=== PATIENT | female | born 1985 | race Hispanic/Latino ===

== ENCOUNTER 2018-03-31 12:58 | Inpatient (IN) | payer MEDICAID, OTHER, SELFPAY ==
--- NOTE | 2018-03-31 14:57 | PDOC.FPROB ---
FMR OB H&P: HPI - History of Present Illness Chief Complaint: Decreased FM Indentification: 33 yo @ 39.2 wk by LMP c/w 32.3 wk nayeli presents for decreased FM History of Present Illness: 33 yo @ 39.2 wk (CRISTHIAN 04/05/18) c/w 32.3 wk nayeli presents from clinic for decreased movement for past 2 days. She states that she has felt baby move twice this morning, and baby moved during her clinic visit when the doctor pressed hard on her abdomen. Patient has also had intermittent diarrhea for past week, and nausea and vomiting her whole . No sick contacts with diarrhea. Her has been complicated by anemia, for which she takes Fe pills. Denies LOF/VB/contractions. She does have pain with urination and sharp bilateral lower back pain that radiates to the groin in certain positions. She also has period-like cramping. Her SVE was 1/thick/-3 at her clinic appointment. FMR OB H&P: Current - Care : 6 Para: [id number] Gestational age: 39.2 Due date: 02/03/18 Dating Criteria: 32.3 wk sono c/w LMP Course/Complications: Anemia, Nausea/vomiting - OB Labs HIV: negative RPR: negative 1 hour gtt: negative for DM GBS: negative - Anatomy Survey Anatomy survey: Growth sono in January, late transfer of care 32.3 wk sono with TAMP c/w LMP 7.2 wk sono done at previous clinic, no records FMR OB H&P: History - Past Medical History PMH: Kidney stones - OB History OB History: 5 miscarriages - PUBLIC RELATIONS SUPERVISOR History PUBLIC RELATIONS SUPERVISOR History: none - Surgical History Sx History: Stent for kidney stones - Social History Social History: Denies alcohol, tobacco, and drug use - Family History Family History: Denies fam hx of HTN, DM, heart disease, or familial disease such as down syndrome FMR OB H&P: Medications - Current Allergies/Adverse Reactions: Allergies Allergy/AdvReac Type Severity Reaction Status Date / Time No Known Allergies Allergy Verified 03/31/18 14:40 FMR OB H&P: ROS - Review of Systems General: denies: fever/chills ENT: denies: nasal congestion, rhinorrhea, sore throat Cardiovascular: denies: chest pain, palpitation Respiratory: denies: cough, congestion, shortness of breath Gastrointestinal: reports: cramping, nausea, vomiting, diarrhea. denies: abdominal pain, constipation, bright red blood Genitourinary (Female): reports: dysuria. denies: incontinence, hematuria, vaginal discharge, vaginal bleeding Musculoskeletal: reports: pain (in bilateral lower back) Neurologic: reports: headache Integumentary: denies: itching, rash Breast: denies: skin changes Psychological: denies: depression, anxiety FMR OB H&P: Vital Signs - Maternal Vital signs: Pulse 113, BP 116/78 - Heart Tones Baseline: 150 Variability: moderate Acceleration: present Deceleration: variable [place] contractions every: none FMR OB H&P: Physical Exam - Physical Exam General: NAD, awake, alert and oriented HEENT: normocephalic and atraumatic, PERRLA, EOMI, MMM, conjunctiva clear, grossly normal hearing Neck: supple, no LAD Heart: RRR, normal S1/S2, no murmurs/rubs/gallops, pulses present, no edema General: CTAB, no respiratory distress, good air movement, no wheezing Abdomen: soft, gravid, bowel sound present Musculoskeletal: pulses present Skin: no rash Psychiatric: intact recent and remote memory, good judgement and insight, normal mood and affect FMR OB H&P: A/P - Problem List (1) related condition in third trimester Current Visit: No Status: Acute Code(s): O26.93 - RELATED CONDITIONS, UNSPECIFIED, THIRD TRIMESTER Discussion: Date/Time: 03/31/18 1455 33 yo @ 39.2 wk by 32.3 wk sono c/w LMP (CRISTHIAN 04/05/18) presents from clinic for decreased movement. sIUP with decreased movement -BPP pending -FHTs baseline 150s, mod variability, accels present, variable decel present, no cxns Dehydration 2/2 gastroenteritis -CMP -LR 1000 ml bolus, then LR @ 125 -Encourage PO fluids -zofran for nausea Hx of Anemia of -Tachycardic -CBC for anemia -Continue Fe Concern for UTI -Pain with urination, pt reports foul smelling urine -UA w/ micro pending Admit to L&D Obs Diet: regular DVT ppx: none Attending Addendum - Attending Addendum Date/Time: 03/31/18 1650 I personally evaluated the patient and discussed the management with Dr. Kang I agree with the History, Examination, Assessment and Plan documented above with any addition or exceptions noted below. 33 yo @ 39.2 wk (CRISTHIAN 04/05/18) by LMP c/w 32.2 wk US presenting for decreased movement. Recent episode of diarrhea and has had persistent nausea/vomiting during the . 1. Maternal tachycardia -IV fluids administered 2. Decreased FM -BPP 12/06 3. Abnormal heart tracing -Fetus initially not tachycardic but became persistently tachycardic after 2L bolus -Several variable decels and spontaneous, subtle decels x 1 min. -Given nonreassuring tracing in at term will proceed with induction of labor. 4. Recurrent AB -had negative APS labs 5. Late transfer of care -Labs incomplete. Will send at this time. 6. IOL -Start IOL with cytotec once strip if strip is reassuring. -Consider cook catheter if tracing is not reassuring -GBS negative
[2018-03-31] MEDS ORDERED: Ondansetron PF 4 MG/2 ML Vial IVP PRN (15:02)
[2018-03-31] MEDS ORDERED: Docusate 100 MG CAP PO PRN (15:02)
[2018-03-31] MEDS ORDERED: Promethazine HCl 25 MG/ML VIAL IM PRN (15:02)
[2018-03-31] MEDS ORDERED: Lactated Ringer's 1,000 ML IV SCH (15:15)
[2018-03-31 15:33] LABS: ALT (SGPT) Less than 7 U/L (8-55); AST (SGOT) 12 U/L (5-34); Albumin 3.6 g/dL (3.5-5.0); Alkaline Phosphatase 179 U/L (40-150); Anion Gap 12 mmol/L (10-20); BUN (Urea Nitrogen) 9 mg/dL (7.0-18.7); Bilirubin, Total 0.2 mg/dL (0.2-1.2); Calc. Creatinine Clearance 0 mL/min (70-130); Calcium 9.3 mg/dL (7.8-10.44); Carbon Dioxide 21 mmol/L (22-29); Chloride 107 mmol/L (98-107); Estimated GFR-MDRD Greater than 90; Globulin 3.3 g/dL (2.4-3.5); Glucose 89 mg/dL (70-105); Potassium 3.8 mmol/L (3.5-5.1); Protein, Total 6.9 g/dL (6.0-8.3); Sodium 136 mmol/L (136-145)
--- NOTE | 2018-03-31 16:33 | PDOC.EVN ---
Event Note - Event Note Event Note: 33 yo presents for reduced FM SVE @ 1600 1/thick/high sIUP -FHTs Cat 2 for tachycardia, and variable decel -SVE @ 1600 on 03/31/18 1/thick/high -BPP 12/04, vertex -Start cytotec induction -BPP wnl -Recheck in 4 hours <Kari Kang - Last Filed: 03/31/18 16:36> - Event Note Event Note: FHT is not category 2 as pt is not in labor. FHR is 180s and pt has had numerous variable decels. Will keep and induce labor for nonreassuring status given abnormalities in FHT <India Cornell - Last Filed: 03/31/18 16:43>
[2018-03-31 16:38] LABS: #Eosinphils 0.1 thou/uL (0.0-0.7); #Lymphocytes 1.7 thou/uL (1.20-3.40); #Monocytes 0.7 thou/uL (0.11-0.59); #Neutrophils 8.2 thou/uL (1.40-6.50); %Basophils 0.5 % (0.0-1.0); %Eosinophils 0.6 % (0.0-10.0); %Monocytes 6.7 % (0.0-10.0); %Neutrophils 76.2 % (42.0-75.0); Hemoglobin 11.9 g/dL (12.0-16.0); Mean Corpuscular HGB CONC 32.3 g/dL (32.0-36.0); Mean Corpuscular Hemoglobin 25.6 pg (27.0-31.0); Mean Corpuscular Volume 79.4 fL (78.0-98.0); Mean Platelet Volume 9.5 fL (7.4-10.4); Platelet Count 358 thou/uL (130-400); RBC Distribution Width 16.7 % (11.5-14.5); Red Blood Cell (RBC) Count 4.64 mill/uL (4.20-5.40); White Blood Cell (WBC) Count 10.7 thou/uL (4.8-10.8)
[2018-03-31] MEDS ORDERED: Misoprostol 100 MCG TAB VAG SCH (16:45)
[2018-03-31 17:11] VITALS: BMI 32.3
[2018-03-31 17:17] LABS: HBSAg Index 0.19 S/CO (0-0.99); Hep B Surf Ag Non-Reactive S/CO (NonReactive)
[2018-03-31 17:39] LABS: Syphilis Antibody Nonreactive (Nonreactive); Syphilis Antibody Index 0.05 S/CO (<1.00 Non-Reactive)
--- NOTE | 2018-03-31 18:05 | PDOC.EVN ---
Event Note - Event Note Event Note: Balloon Placement Cooks balloon requested for cervical ripening as FHTs remain tachycardic and at this time we do not want to initiate medication for IOL. Balloon placed successfully and both uterine and vaginal balloons inflated with 60mL sterile water. FHTs remained baseline 160 with good variability. Mom comfortable and tolerated placement well. Recheck in 12 hours or sooner if indicated.
--- NOTE | 2018-03-31 18:56 | PDOC.EVN ---
Event Note - Event Note Event Note: Date/Time: 03/31/18 185 I personally evaluated the patient and discussed the management with Dr. Cornell. Since IV fluids have been administered, both maternal and HR has improved. HR now 150 baseline with moderate variability of about the past 30 minutes. Because of some late decelerations I am considering the tracing a Cat II, but it is improving with IV fluid therapy. A third liter of crystalloid has been ordered. Maternal HR was 100 during my exam. She had diarrhea and some vomiting, so I expected she has been dehydrated and expect with correction that she and the baby's HR will normalize. I discussed the possibility of delivery should their be concern for the baby and she expressed consent to that should the time come.
[2018-03-31] MEDS: Lactated Ringer's 1,000 ML IV SCH (19:31)
[2018-03-31] MEDS ORDERED: Bupivacaine HCl 0.5%/Epinephrine 1:200,000/PF 30 ml Vial ONE (20:00)
--- NOTE | 2018-03-31 22:00 | PDOC.EVN ---
Event Note - Event Note Event Note: Lexii notes some occasional diarrhea. Feels some pressure and mild Contractions. HR has become category I with spontaneous accels over past hour. Occasional periods of Cat II, but mostly Cat I. Will continue to follow. Continue IV fluids. Labs are normal. [facility] and [facility] records reviewed confirming dates. GBS unknown, and no indication for GBS prophylaxis.
[2018-03-31] MEDS ORDERED: Acetaminophen 500 MG TAB PO PRN (23:39)
[2018-04-01] MEDS ORDERED: Butorphanol Tartrate 1 MG/ML VIAL SLOW IVP PRN (00:41)
--- NOTE | 2018-04-01 02:22 | PDOC.EVN ---
Event Note - Event Note Event Note: 33 yo presents for reduced FM sIUP -FHTs was Cat 2 for tachycardia, and variable decel--> now Cat 1, 135/mod/+ accel/no decel -SVE @ 1600 on 03/31/18 1/thick/high, balloon placed @ 1800 -BPP 8/8, vertex -Patient denies recent diarrhea. Reports frequent urination and urine is turning assessment coordinator in color. - s/p 3L bolus. Pt appeared volume down and has improved with fluid resuscitation. Now continue IVF @ 125. - stadol and tylenol prn - Continue current management. Will allow patient to rest. Balloon will be in place for 12 hrs @ 0600. Will likely start pitocin at that time.
[2018-04-01] MEDS: Lactated Ringer's 1,000 ML IV SCH ×5 (03:15→18:22)
--- NOTE | 2018-04-01 06:41 | PDOC.EVN ---
Event Note - Event Note Event Note: 33 yo @ 39.3 wk presented for reduced FM now here for IOL. Patient is feeling well. Does have headache and some back pain with contractions. Baby is now moving well. Denies upper abdominal pain or swelling. She was able to get some sleep last night, she is now desiring an epidural before pitocin is started. General: well appearing, in bed resting Eyes: Perrla Cardiac: RRR, no murmurs Lungs: BCTA Extremities: pulses full and equal, no peripheral edema RPR negative HepBsAg negative Rubella pending UA pending sIUP -FHTs now Cat 1, 135/mod/+ accel/no decels -SVE @ 1600 on 03/31/18 1/thick/high, balloon placed @ 1800 -SVE @ 0615 on 04/01/18 4/60/-2, balloon removed -BPP 12/04, vertex - s/p 3L bolus. LR @ 125. - stadol and tylenol prn - Epidural ordered - Start augmentation of labor with pitocin <Kari Kang - Last Filed: 04/01/18 07:40> Attending Addendum - Attending Addendum Date/Time: 04/01/18 1236 I personally evaluated the patient and discussed the management with Dr. Kang I agree with the History, Examination, Assessment and Plan documented above with any addition or exceptions noted below. undergoing IOL for nonreassuring status. FHTs have been mostly cat I with periods of cat II Continue induction with pitocin Anticipate <India Cornell - Last Filed: 04/01/18 12:37>
[2018-04-01] MEDS ORDERED: NS / Oxytocin 40 units/1000ml 1,000 ML IV PRN (07:38)
[2018-04-01] MEDS ORDERED: Lidocaine 1% (PF) 30 ML VIAL SC PRN (07:38)
[2018-04-01] MEDS ORDERED: NS w/ Oxytocin 10 units 500 ML IV SCH (07:45)
[2018-04-01] MEDS ORDERED: Fentanyl 4 mcg/Bup 0.1% Cadd 100 ML ONE ×2 (07:47→15:56)
[2018-04-01] MEDS ORDERED: Ferrous Sulfate 325 MG TAB PO SCH (08:00)
[2018-04-01] MEDS ORDERED: Acetaminophen 325 MG TAB PO PRN (08:50)
[2018-04-01] MEDS ORDERED: ePHEDrine/0.9% NaCl/PF SYRINGE 50 mg/10 ml SLOW IVP PRN (08:50)
[2018-04-01] MEDS ORDERED: Lactated Ringer's 500 ML IV PRN (08:50)
[2018-04-01] MEDS ORDERED: Naloxone HCl 0.4 mg/ml Vial IVP PRN ×4 (08:50→23:23)
[2018-04-01] MEDS ORDERED: diphenhydrAMINE 50 MG/ML VIAL IVP PRN ×2 (08:50→23:23)
[2018-04-01] MEDS ORDERED: Eucerin (Mineral Oil/Petrolatum,White) 30 gm Jar TOP PRN ×2 (08:50→23:23)
[2018-04-01] MEDS ORDERED: Fentanyl 4 mcg/Bupivacaine 0.1% Cassette 100 ML EPIDURAL SCH (09:00)
[2018-04-01] MEDS ORDERED: Communication Order-Pharmacy FS SCH ×2 (09:00→23:30)
--- NOTE | 2018-04-01 09:01 | PDOC.EVN ---
Event Note - Event Note Event Note: Patient just received epidural. Now dilated to a 5. Will plan to start augmentation with pitocin shortly once baby's heart rate (which is now elevated ) comes back down to the normal range, and mom is more comfortable.
[2018-04-01 10:30] LABS: Bilirubin Negative (Negative); Blood, Urine Trace (Negative); Clarity CLEAR (Clear); Glucose, Urine (Dipstick) Negative (Negative); Leukocyte Negative (Negative); Nitrite Negative (Negative); Protein, Urine (Dipstick) Negative (Neg-Trace); Specific Gravity, Urine 1.004 (1.002-1.036); Urobilinogen 0.2 mg/dL (0.2-1.0); pH, Urine 7.5 (5.0-9.0)
[2018-04-01 10:32] LABS: Bacteria/HPF None Seen HPF (None Seen); Hyaline Casts/LPF 0-3 HYALINE CAST LPF (0-3 Hyaline); Pathc Cast-AUWi Flag 0.14 (0-2.49); RBC/HPF 0-3 HPF (0-3); Squamous Epithelial 0-3 HPF (0-3); WBC/HPF None Seen HPF (0-3)
--- NOTE | 2018-04-01 13:17 | PDOC.LDPN ---
Labor & Delivery Progress Note - Subjective Subjective: other (headache, lightheadedness) - Objective Vital signs reviewed and normal: yes General: NAD, resting Uterine fundus: non tender Dilation: 6 Effacement: 90% Station: -1 FHT: variability present (Unable to determine category because contractions are not tracing) AROM: clear fluid IUPC placed: yes - Assessment (1) related condition in third trimester Code(s): O26.93 - RELATED CONDITIONS, UNSPECIFIED, THIRD TRIMESTER Current Visit: No Status: Acute Plan: pitocin for augmentation -: sIUP - FHTs mostly Cat I with intermittent Cat II, unable to determine currently as contractions are not tracing; baseline 145, mod variability, accels present - SVE @ 1600 on 03/31/18 1/thick/high, balloon placed @ 1800 - SVE @ 0615 on 04/01/18 4/60/-2, balloon removed - SVE @ 1300 6/80/-1, AROM with clear fluid, IUPC placed - LR @ 125. - stadol and tylenol prn - Epidural in place - Continue pitocin for augmentation - Anticipate .
--- NOTE | 2018-04-01 15:09 | PDOC.LDPN ---
Labor & Delivery Progress Note - Subjective Subjective: comfortable - Objective Vital signs reviewed and normal: yes General: NAD, resting SVE: 5-6/80%/-1 FHT: category 1 [place] contractions every: 2-3 minutes - Assessment (1) related condition in third trimester Code(s): O26.93 - RELATED CONDITIONS, UNSPECIFIED, THIRD TRIMESTER Current Visit: No Status: Acute Plan: pitocin for augmentation -: sIUP - FHTs Cat I, baseline 150, mod variability, accels present - SVE @ 1600 on 03/31/18 1/thick/high, balloon placed @ 1800 - SVE @ 0615 on 04/01/18 4/60/-2, balloon removed - SVE @ 1300 6/80/-1, AROM with clear fluid, IUPC placed - SVE @ 1500 6/80/-1, - LR @ 125. - stadol and tylenol prn - Epidural in place - Continue pitocin for augmentation Anticipate .
[2018-04-01] MEDS ORDERED: Ondansetron PF 4 MG/2 ML Vial ONE ×2 (16:17→21:55)
--- NOTE | 2018-04-01 17:10 | PDOC.LDPN ---
Labor & Delivery Progress Note - Subjective Subjective: comfortable, no concerns - Objective Vital signs reviewed and normal: yes General: resting Uterine fundus: non tender Dilation: 5-6 Effacement: 75% (80) Station: -1 FHT: category 2 [place] contractions every: 2 Plan: pitocin for augmentation -: 1. sIUP - FHTs Cat 2, baseline 150, mod variability, 1 accel, early decels and variable decels, rare late decel - SVE @ 1600 on 03/31/18 1/thick/high, balloon placed @ 1800 - SVE @ 0615 on 04/01/18 4/60/-2, balloon removed - SVE @ 1300 6/80/-1, AROM with clear fluid, IUPC placed - SVE @ 1500 6/80/-1 - SVE @ 1700 6/80/-1 - LR @ 125 - Epidural in place - Continue pitocin for augmentation Will try maternal position changes and decrease pit slightly with intermittent decelerations. Continue to monitor closely and re-assess in 1-2 hours or sooner if any intolerance. Discussed possible implications of failure to progress with patient.
--- NOTE | 2018-04-01 19:12 | PDOC.EVN ---
Event Note - Event Note Event Note: Reviewed the course of labor with the nurse and Dr Cornell. cervicla exam at 1pm was 5-6cm, 3pm was 6cm, and at 5pm was 6cm. FHTs were cat I wiht early decels. On my review I note some variable decels with contractions. Baseline is normal with moderate variability. Lexii has had nausea adn vomiting since her admission. This continues. I discussed the likelihood of needing a delivery for arrest of labor. She is disappointed at the idea of a . We agreed to reassess at 7: 15pm. We discussed the R/B/I/A of and to . We specifically discussed the risk of bleeding, infection, injury to surrounding tissue/organs and hysterectomy for both and vaginal deliveries. She is willing for if needed.
--- NOTE | 2018-04-01 19:37 | PDOC.EVN ---
Event Note - Event Note Event Note: Examined Lexii and cervix is /-2. Discussed findings with patietn and will proceed with delivery. FHT's baseline 150's, moderate variability with early and variable decels with contractions to 130's. Cat II. Lexii consents to . All questions answered. Family is present. Will proceed with delivery.
[2018-04-01] MEDS ORDERED: CEFAZOLIN 2 GM/50 ML BAG ONE (19:50)
[2018-04-01] MEDS ORDERED: Bicitra 30 ML UDCUP ONE (19:50)
--- NOTE | 2018-04-01 20:20 | PDOC.EVN ---
Event Note - Event Note Event Note: Anesthesia has on hold for urgent cases in main OR, because this not stat. Discussed with Dr. Clayton.
--- NOTE | 2018-04-01 21:16 | PDOC.EVN ---
Event Note - Event Note Event Note: Lexii is comfortable. FHT's have normal baseline, moderate variability, spontaneous accels noted. Early decels noted. Cat 1. Contractions have diminished in frequency since we stopped the pitocin.
[2018-04-01] MEDS ORDERED: Morphine PF 1 MG/ML SYR ONE ×2 (21:55→22:58)
[2018-04-01] MEDS ORDERED: Ketorolac Tromethamine 30 MG/ML VIAL ONE (21:55)
[2018-04-01] MEDS ORDERED: ePHEDrine/0.9% NaCl/PF SYRINGE 50 mg/10 ml ONE (21:55)
[2018-04-01] MEDS ORDERED: Oxytocin 10 UNITS/ML VIAL ONE (21:55)
[2018-04-01] MEDS ORDERED: Methylergonovine 0.2 MG/ML VIAL ONE (22:34)
[2018-04-01] MEDS ORDERED: Carboprost 250 MCG/ML AMP ONE (22:39)
[2018-04-01] MEDS ORDERED: Naloxone HCl 0.4 mg/ml Vial IV PRN (23:23)
[2018-04-01] MEDS ORDERED: HYDROmorphone 2 MG/ML VIAL SLOW IVP PRN (23:23)
[2018-04-01] MEDS ORDERED: Ondansetron PF 4 MG/2 ML Vial IVP PRN (23:23)
[2018-04-01] MEDS ORDERED: Promethazine HCl 25 MG SUPP PR PRN (23:23)
[2018-04-01] MEDS ORDERED: Meperidine HCl/PF 25 MG/ML VIAL SLOW IVP PRN (23:23)
[2018-04-01] MEDS ORDERED: Ketorolac Tromethamine 30 MG/ML VIAL IVP PRN (23:23)
[2018-04-01] MEDS ORDERED: L&D-Morphine 4 MG/ML VIAL SLOW IVP PRN (23:23)
[2018-04-01] MEDS ORDERED: Ondansetron HCl/PF 4 MG/2 ML Vial IVP PRN (23:23)
[2018-04-01] MEDS ORDERED: Promethazine HCl 25 MG/ML VIAL IM PRN (23:23)
[2018-04-01] MEDS ORDERED: Ketorolac Tromethamine 30 MG/ML VIAL IVP SCH (23:30)
[2018-04-02] MEDS ORDERED: Bisacodyl 10 MG SUPP PR PRN (01:56)
[2018-04-02] MEDS ORDERED: Ondansetron PF 4 MG/2 ML Vial IVP PRN (01:56)
[2018-04-02] MEDS ORDERED: Lanolin Ointment 7 GM TUBE TOP PRN (01:56)
[2018-04-02] MEDS: Lactated Ringer's 1,000 ML IV SCH ×3 (05:07→22:57)
[2018-04-02 06:11] LABS: Hemoglobin 10.9 g/dL (12.0-16.0); Mean Corpuscular HGB CONC 32.8 g/dL (32.0-36.0); Mean Corpuscular Hemoglobin 26.1 pg (27.0-31.0); Mean Corpuscular Volume 79.7 fL (78.0-98.0); Platelet Count 362 thou/uL (130-400); RBC Distribution Width 16.2 % (11.5-14.5); Red Blood Cell (RBC) Count 4.17 mill/uL (4.20-5.40); White Blood Cell (WBC) Count 18.6 thou/uL (4.8-10.8)
[2018-04-02] MEDS: Docusate Calcium (SURFAK) 240 MG CAP PO SCH ×2 (08:56→21:54)
[2018-04-02] MEDS: Prenatal Vitamin 1 TAB PO SCH (08:56)
[2018-04-02] MEDS: Simethicone Chewable 80 MG TAB PO PRN ×2 (08:56→21:55)
[2018-04-02] MEDS: HYDROcodone/Acetaminophen 5/325 mg Tablet PO PRN ×4 (08:56→21:55)
[2018-04-02] MEDS: Ferrous Sulfate 325 MG TAB PO SCH ×2 (09:00→22:58)
[2018-04-02] MEDS ORDERED: Adacel (T-DAP) 0.5 ML SYRINGE IM ONE (09:00)
--- NOTE | 2018-04-02 09:08 | PDOC.PP ---
Post Progress Note Post Day #: 1 Subjective: 33 yo F PP day 1 s/p pLTCS 2/2 arrest of labor. Some pain around incision site, otherwise no complaints. Dillard remains in place. PO intake tolerated: yes Flatus: no Ambulation: no Vital Signs (12 hours) Temp Pulse Resp BP Pulse Ox 04/02/18 08:05 98.3 F 98 16 105/65 95 04/02/18 03:40 98.6 F 86 20 107/59 L 100 04/02/18 02:50 98.2 F 97 20 121/79 04/02/18 01:40 97.9 F 88 18 124/78 100 Weight Weight 72.575 kg - Physical Examination General: NAD Cardiovascular: no m/r/g, RRR Respiratory: clear to auscultation bilaterally, non-labored breathing Abdominal: + bowel sounds, lochia, no distention, appropriately TTP Extremities: negative homans (B) Skin: no rash Neurological: no gross focal deficits Psychiatric: A&Ox3, normal affect Result Diagrams: 04/02/18 05:37 03/31/18 15:03 Additional Labs: Post Labs Blood Type O POSITIVE 03/31/18 14:30 Hep Bs Antigen Non-Reactive S/CO (NonReactive) 03/31/18 14:30 (1) Status post primary low transverse section Code(s): Z98.891 - HISTORY OF UTERINE SCAR FROM PREVIOUS SURGERY Status: Acute - Assessment/Plan 1) TIUP, delivered- s/p pLTCS 2/2 arrest of labor - pt still has dillard in place, to be removed this am - pt will ambulate and shower this am after dillard removal - tolerating liquids, no flatus - some inicisional pain, will assess incision after pt receives pain medicines and dressing change after shower, no erythema of skin surrounding incision - cont pain control, monitor Is/Os - scant lochia, Hgb stable and VSS, monitor <Jose Lomeli - Last Filed: 04/02/18 09:19> Vital Signs (12 hours) Temp Pulse Resp BP Pulse Ox 04/02/18 08:05 98.3 F 98 16 105/65 95 04/02/18 03:40 98.6 F 86 20 107/59 L 100 04/02/18 02:50 98.2 F 97 20 121/79 04/02/18 01:40 97.9 F 88 18 124/78 100 Weight Weight 72.575 kg Result Diagrams: 04/02/18 05:37 03/31/18 15:03 Additional Labs: Post Labs Blood Type O POSITIVE 03/31/18 14:30 Hep Bs Antigen Non-Reactive S/CO (NonReactive) 03/31/18 14:30 (1) related condition in third trimester Code(s): O26.93 - RELATED CONDITIONS, UNSPECIFIED, THIRD TRIMESTER Status: Acute <India Cornell - Last Filed: 04/02/18 11:15> Attending Addendum - Attending Addendum Date/Time: 04/02/18 1112 I personally evaluated the patient and discussed the management with Dr. Lomeli I agree with the History, Examination, Assessment and Plan documented above with any addition or exceptions noted below. POD #1 s/p primary low transverse for arrest of dilatation at 6cm Doing well this morning. She has had a small void s/p removal of dillard. Ambulating without dizziness. Bleeding is light. Has tolerated PO. No flatus yet. Meeting appropriate milestones. Continue routine care. Anticipate d/c to home on POD # 2 or 3 <India Cornell - Last Filed: 04/02/18 11:15>
[2018-04-02] MEDS ORDERED: Ibuprofen 800 MG TAB PO SCH (22:00)
[2018-04-03] MEDS: Lactated Ringer's 1,000 ML IV SCH ×3 (04:50→21:00)
[2018-04-03] MEDS: Ibuprofen 800 MG TAB PO SCH ×3 (05:02→21:07)
[2018-04-03] MEDS: Docusate Calcium (SURFAK) 240 MG CAP PO SCH ×2 (07:59→21:08)
[2018-04-03] MEDS: Prenatal Vitamin 1 TAB PO SCH (07:59)
[2018-04-03] MEDS: Simethicone Chewable 80 MG TAB PO PRN ×3 (08:00→21:07)
[2018-04-03] MEDS: HYDROcodone/Acetaminophen 5/325 mg Tablet PO PRN ×3 (08:00→16:52)
[2018-04-03] MEDS: Ferrous Sulfate 325 MG TAB PO SCH ×2 (08:15→21:00)
--- NOTE | 2018-04-03 09:09 | PDOC.PP ---
Post Progress Note Post Day #: 2 Subjective: KAPIL overnight. Pt denies cp, sob, nvdc. Has had small amount of food and is tolerating liquids well. No fever/chills. Incisional pain persists, but imprved. PO intake tolerated: yes Flatus: yes Ambulation: yes Vital Signs (12 hours) Temp Pulse Resp BP Pulse Ox 04/03/18 08:48 98.0 F 79 20 90/55 L 98 04/03/18 04:50 98.3 F 76 18 98/63 04/03/18 01:00 98.3 F 87 18 93/57 L 04/02/18 21:50 96 Weight Weight 72.575 kg - Physical Examination General: NAD Cardiovascular: no m/r/g, RRR Respiratory: clear to auscultation bilaterally, non-labored breathing Abdominal: + bowel sounds, lochia, no distention, appropriately TTP Skin: CS incision dry & intact, no rash Neurological: no gross focal deficits Psychiatric: A&Ox3, normal affect Result Diagrams: 04/02/18 05:37 03/31/18 15:03 Additional Labs: Post Labs Blood Type O POSITIVE 03/31/18 14:30 Hep Bs Antigen Non-Reactive S/CO (NonReactive) 03/31/18 14:30 (1) Status post primary low transverse section Code(s): Z98.891 - HISTORY OF UTERINE SCAR FROM PREVIOUS SURGERY Status: Acute - Assessment/Plan 1) TIUP, delivered- s/p pLTCS 2/2 arrest of labor - pt pain overall imprved, incision CDI - vss, tolerating po, scant lochia, ambulating, urinating anf passing flatus - uterus firm below umbilicus - met with therapeutic consultant, no concerns - will plan for DC tomorrow and isabell removed with dermabond placed prior to DC. - cont ibuprofen unruly and prn norco for pain control <Jose Lomeli - Last Filed: 04/03/18 09:08> Vital Signs (12 hours) Temp Pulse Resp BP Pulse Ox 04/03/18 11:41 97.9 F 87 20 100/60 04/03/18 08:48 98.0 F 79 20 90/55 L 98 04/03/18 04:50 98.3 F 76 18 98/63 04/03/18 01:00 98.3 F 87 18 93/57 L Weight Weight 72.575 kg Result Diagrams: 04/02/18 05:37 03/31/18 15:03 Additional Labs: Post Labs Blood Type O POSITIVE 03/31/18 14:30 Hep Bs Antigen Non-Reactive S/CO (NonReactive) 03/31/18 14:30 Rubella IgG Antibody Less than 0.90 index (Immune >0.99) L 03/31/18 14:30 (1) related condition in third trimester Code(s): O26.93 - RELATED CONDITIONS, UNSPECIFIED, THIRD TRIMESTER Status: Acute <India Cornell - Last Filed: 04/03/18 11:53> Attending Addendum - Attending Addendum Date/Time: 04/03/18 1152 I personally evaluated the patient and discussed the management with Dr. Lomeli I agree with the History, Examination, Assessment and Plan documented above with any addition or exceptions noted below. Stable POD # 2. Meeting appropriate milestones. Continue routine care. Anticipate d/c to home on POD #3 <India Cornell - Last Filed: 04/03/18 11:53>
[2018-04-04] MEDS: HYDROcodone/Acetaminophen 5/325 mg Tablet PO PRN ×3 (01:44→13:04)
--- NOTE | 2018-04-04 05:04 | OP ---
DATE OF PROCEDURE: 04/01/2018 REPORT TYPE: operative note. LOCATION: [place], [place]. RESIDENT SURGEON: Jose Lomeli DO MECHANICAL DESIGN TECHNICIAN SURGEON: Sabina Davis MD PROCEDURE PERFORMED: Primary low transverse section. PREOPERATIVE DIAGNOSES: 1. Term intrauterine . 2. Arrest of second stage of labor. POSTOPERATIVE DIAGNOSES: 1. Term intrauterine . 2. Arrest of second stage of labor. ANESTHESIA: Spinal epidural. INDICATIONS: The patient is a 33-year-old G6, P0-0-5-0, now 1 female at 39 weeks and 3 days' gestation, who presented for decreased movement, tachycardia, and was subsequently labor was induced. The patient had arrest of second stage of labor and they reminded at 6 cm for greater than 6 hours. DESCRIPTION OF PROCEDURE: After risks, benefits, and alternatives were explained to the patient, she gave informed consent. Preoperative antibiotics included cefazolin 2 g IV. The patient was taken to the operating room and spinal anesthesia was confirmed. She was placed in the supine position with a left tilt, prepped and draped in the usual sterile fashion. Pfannenstiel incision was made with a scalpel and carried down to the level of the fascia, which was sharply nicked. The fascia cut was extended bilaterally with Dave scissors. The inferior and superior edges of the cut fascial edges were elevated with Dorota clamps and underlying rectus muscles were bluntly and sharply dissected free. The recti were divided digitally and retracted manually. The peritoneum was entered bluntly and retracted manually. The bladder blade was placed. Lower transverse score was made with the scalpel and the uterus was entered in the midline with the scalpel. Clear fluid was seen. The hysterotomy was extended manually in a cephalocaudal fashion. The was noted to be vertex and was easily delivered by fundal pressure. Infant was noted to have a nuchal cord x2. Mouth and nares were bulb suctioned. The cord was clamped and cut and grossly a normal female infant was handed to the awaiting nurse. Cord blood was obtained. The placenta was spontaneously delivered after and found to be intact with 3-vessel cord noted and sent for pathology. Uterus was externalized. Endometrium was curetted with a dry lap. The bladder blade was placed and the uterus was closed with a running locking #1 Monocryl suture. Following this, a single [id number] stitch was placed over the hysterotomy bleeder and good hemostasis was noted subsequently. Paracolic gutters were visualized and noted to be free of clots. Hysterotomy showed good hemostasis. However, uterine atony was noted as such the patient was given Methergine 0.2 x1 in addition to Hemabate 250 mcg x1 and uterine massage was continued. Uterus was then replaced within the abdomen, that noted to be hemostatic and the fundus subsequently firm. The fascia was closed with a running nonlocking 0 Vicryl suture. The subcutaneous tissue was irrigated and bleeders were cauterized. The skin was approximated with isabell and a pressure dressing was placed. All counts were correct. The patient tolerated the procedure well and was taken to the recovery room in stable condition. ESTIMATED BLOOD LOSS: 610 mL. COMPLICATIONS: Uterine atony, resolved. SPECIMENS: Cord blood was sent to lab for blood type in addition to placenta for pathology. FINDINGS: 1. Grossly normal female with Apgars of 8 and 9 at 1 and 5 minutes respectively. 2. Grossly normal placenta with 3-vessel cord was sent for pathology review. 3. During this, Limon to gravity drained clear urine. Job ID: [id number] [facility]
[2018-04-04] MEDS: Ibuprofen 800 MG TAB PO SCH ×2 (05:41→13:04)
[2018-04-04 08:09] VITALS: BP 110/71; TEMP 98.1
--- NOTE | 2018-04-04 08:10 | PDOC.PP ---
Post Progress Note Post Day #: 3 Subjective: 33 yo PP day s/p pLTCS 2/2 arrest of labor KAPIL overnight. Pt pain improving, some incisional pain persists. No concerns. Denies CP, SOB, NVDC, fever and chills. PO intake tolerated: yes Flatus: yes Ambulation: yes Vital Signs (12 hours) Temp Pulse Resp BP Pulse Ox 04/04/18 08:08 98.1 F 88 20 110/71 96 Weight Weight 72.575 kg - Physical Examination General: NAD Cardiovascular: no m/r/g, RRR Respiratory: clear to auscultation bilaterally, non-labored breathing Abdominal: + bowel sounds, no distention, appropriately TTP Skin: CS incision dry & intact, no rash Neurological: no gross focal deficits Psychiatric: A&Ox3, normal affect Result Diagrams: 04/02/18 05:37 03/31/18 15:03 Additional Labs: Post Labs Blood Type O POSITIVE 03/31/18 14:30 Hep Bs Antigen Non-Reactive S/CO (NonReactive) 03/31/18 14:30 Rubella IgG Antibody Less than 0.90 index (Immune >0.99) L 03/31/18 14:30 (1) Status post primary low transverse section Code(s): Z98.891 - HISTORY OF UTERINE SCAR FROM PREVIOUS SURGERY Status: Acute - Assessment/Plan ) TIUP, delivered- s/p pLTCS 2/2 arrest of labor - pt pain overall imprved, incision CDI - vss, tolerating po, scant lochia, ambulating, urinating and passing flatus - uterus firm below umbilicus - met with senior health consultant, no concerns -dc to home today after staple removal and dermabond/steristrips placed - MMR prior to discharge - f/u 1 week <Jose Lomeli - Last Filed: 04/04/18 08:38> Vital Signs (12 hours) Temp Pulse Resp BP Pulse Ox 04/04/18 08:08 98.1 F 88 20 110/71 96 Weight Weight 72.575 kg Result Diagrams: 04/02/18 05:37 03/31/18 15:03 Additional Labs: Post Labs Blood Type O POSITIVE 03/31/18 14:30 Hep Bs Antigen Non-Reactive S/CO (NonReactive) 03/31/18 14:30 Rubella IgG Antibody Less than 0.90 index (Immune >0.99) L 03/31/18 14:30 (1) related condition in third trimester Code(s): O26.93 - RELATED CONDITIONS, UNSPECIFIED, THIRD TRIMESTER Status: Acute <India Cornell - Last Filed: 04/04/18 13:11> Attending Addendum - Attending Addendum Date/Time: 04/04/18 1310 I personally evaluated the patient and discussed the management with Dr. Lomeli I agree with the History, Examination, Assessment and Plan documented above with any addition or exceptions noted below. Stable POD #3. Meeting appropriate milestones. D/c to home today <India Cornell - Last Filed: 04/04/18 13:11>
[2018-04-04] MEDS: Docusate Calcium (SURFAK) 240 MG CAP PO SCH (08:43)
[2018-04-04] MEDS: Prenatal Vitamin 1 TAB PO SCH (08:43)
[2018-04-04] MEDS: Simethicone Chewable 80 MG TAB PO PRN (08:43)
[2018-04-04] MEDS ORDERED: Measles/Mumps/Rubella 10 MCG/0.5 ML VIAL SC ONE (09:00)
[2018-04-04] MEDS: Lactated Ringer's 1,000 ML IV SCH ×2 (09:15→13:15)
[2018-04-04] MEDS: Ferrous Sulfate 325 MG TAB PO SCH (09:16)
== END 2018-04-04 14:40 | disposition home or self-care (01) | DRG 788 ==
LOC: L&D/OP 12:58 → L&D 19:15 → 3SW 04-02 01:51
PROVIDERS: ADMIT Family Medicine; ATTEND Family Medicine
PROC: 10D00Z1 Extraction of Products of Conception, Low, Open Approach (ICD-10-PCS; principal; 2018-04-01)
DX: O63.1 Prolonged second stage (of labor) (principal); O36.8130 Decreased fetal movements, third trimester, not applicable or unspecified; O76 Abnormality in fetal heart rate and rhythm complicating labor and delivery; O62.2 Other uterine inertia; Z3A.39 39 weeks gestation of pregnancy; Z37.0 Single live birth
CPT/HCPCS: 36415; 51702; 81001; 85027; 86762; 86780; 86850; 86900; 86901; 87340; 88307; 90707; 99285; C1726; J0595; J0670; J1885; J2210; J2274; J2405; J2590; J3490